=== PATIENT | female | born 1970 | race Caucasian/White ===

== ENCOUNTER 2024-09-12 06:03 | Inpatient (IN) | payer OTHER ==
[2024-09-12] MEDS ORDERED: FAMOTIDINE 20 MG/50 ML IVPB 20 MG/50 ML MG IVPB ONE (07:49)
[2024-09-12] MEDS ORDERED: MAG HYDROX/AL HYDROX/SIMETH 30 ML UNIT-DOSE CUP ONE (07:49)
[2024-09-12] MEDS: SODIUM CHLORIDE 1,000 ML IV STA (08:00)
[2024-09-12] MEDS ORDERED: ACETAMINOPHEN INJECTION 100 ML ONE (08:05)
[2024-09-12] MEDS ORDERED: ONDANSETRON 4 MG/2 ML VIAL ONE (08:05)
[2024-09-12] MEDS: ONDANSETRON 4 MG/2 ML VIAL IVPUSH ONE (08:08)
[2024-09-12 08:10] LABS: BASO % 0.2 % (0-2.0); EOS % 0.2 % (0-4.5); HEMOGLOBIN 14.3 GM/dL (10.7-15.3); LYMPH % 8.7 % (8-40); MCH 32.2 pg (25.7-33.7); MCHC 34.2 g/dl (32.0-36.0); MEAN CELL VOLUME 94.2 fl (80-96); MONO % 5.7 % (3.8-10.2); NEUT % 85.2 % (42.8-82.8); PLATELET COUNT 200 10^3/uL (134-434); RBC 4.46 M/mm3 (3.60-5.2); RDW 13.3 % (11.6-15.6); WHITE BLOOD COUNT 10.7 K/mm3 (4.0-10.0)
[2024-09-12] MEDS: FAMOTIDINE 20 MG/50 ML IVPB 20 MG/50 ML MG IVPB ONE (08:10)
[2024-09-12] MEDS: ACETAMINOPHEN 1000 MG/100 ML BAG IVPB ONE (08:10)
[2024-09-12 08:26] LABS: INR 1.05 (0.83-1.09); PROTHROMBIN TIME (PATIENT) 11.6 SEC (9.7-13.0)
[2024-09-12] MEDS: MAG HYDROX/AL HYDROX/SIMETH 30 ML UNIT-DOSE CUP PO ONE (08:30)
[2024-09-12 08:32] LABS: POTASSIUM 4.2 mmol/L (3.5-5.1)
[2024-09-12 08:34] LABS: ALBUMIN 3.8 g/dl (3.4-5.0); BLOOD UREA NITROGEN 18.3 mg/dL (7-18); CALCIUM 9.2 mg/dL (8.5-10.1)
[2024-09-12 08:37] LABS: CREATININE 0.8 mg/dL (0.55-1.3)
[2024-09-12 08:39] LABS: BILIRUBIN,TOTAL 0.9 mg/dL (0.2-1); TOT PROT 7.4 g/dl (6.4-8.2)
[2024-09-12] MEDS: LACTATED RINGERS SOLUTION 1,000 ML/1,000 ML INFUS.BAG IV SCH (13:30)
[2024-09-12 13:44] VITALS: BMI 31.6
[2024-09-12] MEDS: ONDANSETRON 4 MG/2 ML VIAL IVPUSH PRN (13:47)
[2024-09-12] MEDS: ACETAMINOPHEN 1000 MG/100 ML BAG IVPB PRN (14:11)
[2024-09-12] MEDS: ONDANSETRON 4 MG/2 ML VIAL IVPB ONE (17:14)
[2024-09-12] MEDS: SCOPOLAMINE HYDROBROMIDE 1 PATCH PATCH.TD72 TD SCH (17:21)
[2024-09-12] MEDS: oxyCODONE HCL 5 MG TABLET PO PRN (18:05)
[2024-09-12] MEDS: FAMOTIDINE 20 MG/50 ML IVPB 20 MG/50 ML MG IVPB SCH (21:55)
[2024-09-13 09:57] LABS: BASO % 0.7 % (0-2.0); EOS % 0.5 % (0-4.5); HEMATOCRIT 37.8 % (32.4-45.2); HEMOGLOBIN 13.2 GM/dL (10.7-15.3); LYMPH % 23.1 % (8-40); MCH 32.7 pg (25.7-33.7); MCHC 34.9 g/dl (32.0-36.0); MEAN CELL VOLUME 93.5 fl (80-96); MEAN PLT VOLUME 8.9 fl (7.5-11.1); MONO % 8.5 % (3.8-10.2); NEUT % 67.2 % (42.8-82.8); PLATELET COUNT 172 10^3/uL (134-434); RBC 4.04 M/mm3 (3.60-5.2); RDW 13.4 % (11.6-15.6); WHITE BLOOD COUNT 5.3 K/mm3 (4.0-10.0)
[2024-09-13] MEDS: FLUoxetine HCL 20 MG CAPSULE PO SCH (09:57)
[2024-09-13] MEDS: PANTOPRAZOLE 20 MG TABLET PO SCH (09:58)
[2024-09-13] MEDS: valACYclovir HCL 500 MG TABLET (FP) PO SCH (09:58)
[2024-09-13 10:28] LABS: POTASSIUM 4.5 mmol/L (3.5-5.1)
[2024-09-13 10:50] LABS: ALBUMIN 3.3 g/dl (3.4-5.0); BLOOD UREA NITROGEN 10.6 mg/dL (7-18); CALCIUM 8.7 mg/dL (8.5-10.1); MAGNESIUM 2.2 mg/dL (1.8-2.4)
[2024-09-13 10:52] LABS: BILIRUBIN,TOTAL 0.7 mg/dL (0.2-1)
[2024-09-13 10:53] LABS: CREATININE 0.8 mg/dL (0.55-1.3); PHOSPHOROUS 2.5 mg/dL (2.5-4.9); TOT PROT 6.5 g/dl (6.4-8.2)
[2024-09-14] MEDS ORDERED: BUPIVACAINE HCL/PF 0.25% (2.5MG/ML) 10 ML VIAL ONE (07:39)
[2024-09-14] MEDS ORDERED: PROPOFOL 20 ML ONE (08:28)
[2024-09-14] MEDS ORDERED: LIDOCAINE HCL/PF 2% SDV 5ML VIAL ONE (08:28)
[2024-09-14] MEDS ORDERED: ROCURONIUM BROMIDE 50 MG/5 ML SYRINGE ONE ×2 (08:28→09:29)
[2024-09-14 08:34] LABS: ALBUMIN 3.4 g/dl (3.4-5.0)
[2024-09-14 08:37] LABS: BILIRUBIN,DIRECT 0.2 mg/dL (0.0-0.2)
[2024-09-14] MEDS ORDERED: MIDAZOLAM HCL 2 MG/2 ML SINGLE DOSE VIAL ONE (08:37)
[2024-09-14 08:39] LABS: BILIRUBIN,TOTAL 0.6 mg/dL (0.2-1); TOT PROT 6.3 g/dl (6.4-8.2)
[2024-09-14] MEDS ORDERED: DEXAMETHASONE SOD PHOSPHATE 4 MG/1 ML VIAL ONE (08:52)
[2024-09-14] MEDS ORDERED: PROPOFOL 60 ML ONE (08:53)
[2024-09-14] MEDS ORDERED: PROMETHAZINE HCL 25 MG/1 ML VIAL IVPB PRN ×2 (09:09→10:35)
[2024-09-14] MEDS ORDERED: ONDANSETRON 4 MG/2 ML VIAL IVPUSH PRN ×2 (09:09→10:35)
[2024-09-14] MEDS: BUPIVACAINE HCL/PF 0.25% (2.5MG/ML) 10 ML VIAL IJ ONE (09:49)
[2024-09-14] MEDS ORDERED: SUGAMMADEX SODIUM 200 MG/2 ML VIAL ONE (10:09)
[2024-09-14] MEDS ORDERED: oxyCODONE HCL 5 MG TABLET PO PRN (10:35)
[2024-09-14] MEDS ORDERED: ONDANSETRON 4 MG/2 ML VIAL ONE (10:39)
[2024-09-14] MEDS: ONDANSETRON 4 MG/2 ML VIAL IVPUSH PRN (10:41)
[2024-09-14] MEDS: LACTATED RINGERS SOLUTION 1,000 ML IV SCH (11:53)
[2024-09-14] MEDS: ACETAMINOPHEN 325 MG TABLET (FP) PO SCH (11:56)
[2024-09-14] MEDS: ACETAMINOPHEN 1000 MG/100 ML BAG IVPB ONE (12:17)
[2024-09-14] MEDS: oxyCODONE HCL 5 MG TABLET PO PRN (13:05)
[2024-09-14] MEDS: FAMOTIDINE 20 MG/50 ML IVPB 20 MG/50 ML MG IVPB SCH (21:57)
[2024-09-15 08:25] LABS: BASO % 0.3 % (0-2.0); EOS % 0.2 % (0-4.5); HEMATOCRIT 37.7 % (32.4-45.2); HEMOGLOBIN 13.2 GM/dL (10.7-15.3); LYMPH % 27.5 % (8-40); MCH 32.7 pg (25.7-33.7); MEAN CELL VOLUME 93.6 fl (80-96); MEAN PLT VOLUME 9.4 fl (7.5-11.1); MONO % 8.7 % (3.8-10.2); NEUT % 63.3 % (42.8-82.8); PLATELET COUNT 189 10^3/uL (134-434); RBC 4.03 M/mm3 (3.60-5.2); RDW 13.3 % (11.6-15.6); WHITE BLOOD COUNT 8.9 K/mm3 (4.0-10.0)
[2024-09-15 08:32] LABS: ALBUMIN 3.5 g/dl (3.4-5.0); BLOOD UREA NITROGEN 7.8 mg/dL (7-18)
[2024-09-15 08:33] LABS: CALCIUM 8.8 mg/dL (8.5-10.1)
[2024-09-15 08:35] LABS: CREATININE 0.9 mg/dL (0.55-1.3)
[2024-09-15 08:37] LABS: BILIRUBIN,TOTAL 0.8 mg/dL (0.2-1); TOT PROT 6.7 g/dl (6.4-8.2)
[2024-09-15] MEDS: valACYclovir HCL 500 MG TABLET (FP) PO SCH (09:11)
[2024-09-15] MEDS: PANTOPRAZOLE 20 MG TABLET PO SCH (09:11)
[2024-09-15] MEDS: FLUoxetine HCL 20 MG CAPSULE PO SCH (09:11)
[2024-09-15 11:22] VITALS: BP 101/68; PULSE 70; RESP 18; TEMP 98.4
[2024-09-15] MEDS ORDERED: SCOPOLAMINE HYDROBROMIDE 1 PATCH PATCH.TD72 TD SCH (18:15)
== END 2024-09-15 09:49 | disposition home or self-care (01) | DRG 418 ==
LOC: JER 06:03 → JERBED 10:43 → OBSVTOIN 11:06 → J8W 12:13
PROVIDERS: ATTEND Student in an Organized Health Care Education/Training Program
PROC: 8E0W4CZ Robotic Assisted Procedure of Trunk Region, Percutaneous Endoscopic Approach (ICD-10-PCS; 2024-09-14)
PROC: 0FT44ZZ Resection of Gallbladder, Percutaneous Endoscopic Approach (ICD-10-PCS; principal; 2024-09-14 08:00)
DX: K80.00 Calculus of gallbladder with acute cholecystitis without obstruction (principal); J98.11 Atelectasis; E78.5 Hyperlipidemia, unspecified; K76.0 Fatty (change of) liver, not elsewhere classified
CPT/HCPCS: 0241U-QW; 36415; 71045-TC-FY; 76705-TC; 80053; 80061; 80076; 83036; 83690; 83735; 83880; 84100; 84443; 84484; 84703; 85025; 85610; 86850; 86900; 86901; 88304-TC; 93005; 93010; 93306-TC; 94760; 99285-25; G0378; J0131